=== PATIENT | female | born 2000 | race African-American/Black ===

== ENCOUNTER 2019-09-24 17:53 | Emergency (ER) | payer OTHER ==
[~2019-09-24] VITALS: Ht 165.1 cm; Wt 94.3 kg
[2019-09-24 19:43] LABS: ANION GAP 9 mmol/L (7-16); BUN 9 mg/dL (7-18); CALCIUM 8.9 mg/dL (8.5-10.1); CHLORIDE 101 mmol/L (98-107); CO2 26 mmol/L (21-32); CREATININE 0.6 mg/dL (0.6-1.0); GLUCOSE 99 mg/dL (74-106); POTASSIUM 3.5 mmol/L (3.5-5.1); SODIUM 136 mmol/L (136-145)
[2019-09-24 19:51] LABS: ALBUMIN 3.7 g/dL (3.4-5.0); DIRECT BILIRUBIN < 0.1 mg/dL (<0.1-0.3); SGOT 27 U/L (15-37); SGPT 36 U/L (30-65); TOTAL BILIRUBIN 0.2 mg/dL (<0.1-1.0); TOTAL PROTEIN 8.1 g/dL (6.4-8.2)
[2019-09-24 19:53] LABS: ABSOLUTE NEUTROPHILS 8.2 thou/uL (1.4-8.2); BASOPHILS 0.3 % (0.0-2.0); EOSINOPHILS 0.6 % (0.0-3.0); HEMATOCRIT 36.7 % (37.0-47.0); HEMOGLOBIN 11.6 gm/dL (12.0-15.0); LYMPHOCYTES 23.4 % (24.0-44.0); MCH 24.5 pg (26.0-34.0); MCHC 31.6 g/dL (28.0-37.0); MCV 77.7 fL (80.0-100.0); MONOCYTES 6.1 % (1.0-8.0); PLATELET COUNT 343 thou/uL (150-400); POLYS 69.6 % (36.0-66.0); RBC 4.73 mil/uL (4.20-5.00); RDW 16.4 % (10.5-14.5); WBC 11.8 thou/uL (4.0-11.0)
[2019-09-24 20:48] LABS: URINE BILIRUBIN NEGATIVE (Negative); URINE BLOOD 2+ (Negative); URINE CLARITY CLEAR; URINE COLOR YELLOW; URINE GLUCOSE-RANDOM* NEGATIVE (Negative); URINE KETONES NEGATIVE (Negative); URINE LEUKOCYTES-REFLEX NEGATIVE (Negative); URINE NITRITE-REFLEX NEGATIVE (Negative); URINE PROTEIN (DIPSTICK) NEGATIVE (Negative); URINE UROBILINOGEN 0.2 E.U./dl (0.2-1.0)
[2019-09-24] MEDS ORDERED: NAPROSYN500 MG PO (20:53)
[2019-09-24 21:03] VITALS: BP 155/81
[2019-09-24 21:05] LABS: BACTERIA-REFLEX 1-9 Few /HPF (None Seen); CASTS None Seen /LPF (None Seen); CRYSTALS None Seen /LPF (None Seen); MUCUS 4-6 Moderate strn/LPF (None Seen); SQUAMOUS 0-3 Few /LPF (0-3); URINE RBC 0-2 Rare /HPF (0-2); URINE WBC-REFLEX 0-5 Rare /HPF (0-5)
== END 2019-09-24 21:04 | disposition home or self-care (01) ==
LOC: ER 17:53
PROVIDERS: Emergency Medicine; Physician Assistant
DX: N91.1 Secondary amenorrhea (principal); R10.9 Unspecified abdominal pain; Z86.2 Personal history of diseases of the blood and blood-forming organs and certain disorders involving the immune mechanism

== ENCOUNTER 2019-10-19 05:06 | Emergency (ER) | payer OTHER ==
[~2019-10-19] VITALS: Ht 165.1 cm; Wt 101.2 kg
[~2019-10-19 05:06] MED LIST: NAPROSYN500 MG PO
[2019-10-19] MEDS ORDERED: PENICILLIN VK500 MG PO (05:45)
[2019-10-19] MEDS ORDERED: ULTRAM 50MG TAB50 MG PO (05:45)
[2019-10-19 06:03] VITALS: BP 122/81
== END 2019-10-19 06:04 | disposition home or self-care (01) ==
LOC: ER 05:06
DX: K04.7 Periapical abscess without sinus (principal); Z86.2 Personal history of diseases of the blood and blood-forming organs and certain disorders involving the immune mechanism

== ENCOUNTER 2021-02-16 19:09 | Emergency (ER) | payer OTHER ==
[~2021-02-16] VITALS: Ht 165.1 cm; Wt 104.3 kg
[~2021-02-16 19:09] MED LIST changes: +PENICILLIN VK500 MG PO; +ULTRAM 50MG TAB50 MG PO
[2021-02-16] MEDS ORDERED: SERTRALINE HCL100 MG PO (19:31)
[2021-02-16] MEDS ORDERED: WELLBUTRIN XL300 MG PO (19:31)
[2021-02-16 20:38] VITALS: BP 138/79
== END 2021-02-16 20:39 | disposition home or self-care (01) ==
LOC: ER 19:09
DX: S93.491A Sprain of other ligament of right ankle, initial encounter (principal); S90.511A Abrasion, right ankle, initial encounter; Z79.899 Other long term (current) drug therapy; V00.131A Fall from skateboard, initial encounter; Y93.51 Activity, roller skating (inline) and skateboarding; Y92.89 Other specified places as the place of occurrence of the external cause; Y99.9 Unspecified external cause status